=== PATIENT | male | born 1950 | race Caucasian/White ===

== ENCOUNTER 2023-12-15 08:30 | Emergency (ER) | payer MEDICARE, OTHER, SELFPAY ==
[2023-12-15 08:48] VITALS: BP 171/99
[2023-12-15] MEDS: PERCOCET 5/325 2 TABLET PO (11:19)
--- NOTE | 2023-12-15 11:25 | ED.GENMED ---
History of Present Illness
General
Chief Complaint: Musculo-Skeletal Complaint
Source: patient
Exam Limitations: none
Time Seen by Provider: 12/15/23 09:00
Nursing documentation reviewed up to this point in time: agreed with
Travel History
Have you had any contact with someone who has COVID-19?: No
Do you have any symptoms of coronavirus? Fever > 100 degrees, chills, cough, shortness of breath, sore throat, loss of taste or smell, muscle aches, or headache?: No
History of Present Illness
History of Present Illness:
73-year-old male with past ministry of CAD hypertension hyperlipidemia presenting to the emergency department today with concerns of left-sided knee discomfort. That started 3 days ago. He has noticed ongoing discomfort to the area and worsening
over the past few days. Denies numbness weakness has noticed a small mount of swelling no redness or warmth no fevers no systemic symptoms
Past History
Past History
ED Past Medical History: CAD, HTN and Hypercholesterolemia
ED Past Surgical History: Bowel resection, Cardiac (Double bypass) and Orthopedic (Right knee surgery)
Social History
Tobacco: Non-smoker
Alcohol: Other
Personal:
Living: with family
Review of Systems
Review of Systems
Allergies reviewed?: Yes
All Other Systems: ROS reviewed and negative except as documented in HPI and ROS
Phy Exam
Physical Exam
Physical Exam:
GENERAL: Alert , in no apparent distress
EYE: pupils equal and reactive
NECK: Supple, no significant adenopathy.
ENT: o/p clr, mmm.
CARDIAC: Regular rate and rhythm .
LUNGS: Clear breath sounds bilaterally, no acute respiratory distress, no wheezes/rales/rhonchi
ABDOMEN: Soft, without focal tenderness, no r/g, no cvat
NEUROLOGICAL: Alert and oriented, no focal neuro deficits
SKIN: Warm and dry, skin intact.
MUSCULOSKELETAL: No specific discomfort when palpating the knee no redness or warmth good range of motion increased discomfort only when ambulating weightbearing no edema, well perfused.
PSYCH: Normal and appropriate interaction.
Course
Orders/Labs/Results
Orders:
Orders
12/15/23 08:51
Knee, Left 4 or More Views [CR Knee - Left 4 Or More View*] Urgent
Comment:
Reason For Exam: pain
12/15/23 10:25
Venous Doppler Lwr Ext Left [US Periph Venous LOWER Ext LT] Urgent
Comment:
Reason For Exam: left leg pain
12/15/23 10:46
Oxycodone/Acetaminophen [Percocet 5/325] 2 tablet PO NOW STA
Vital Signs
Initial and Last Documented VS:
Initial Vital Signs
Temp Pulse Resp BP Pulse Ox
97.9 F 67 16 171/99 98
12/15/23 08:48 12/15/23 08:48 12/15/23 08:48 12/15/23 08:48 12/15/23 08:48
Last Documented Vital Signs
Temp Pulse Resp BP Pulse Ox
97.9 F 67 16 171/99 98
12/15/23 08:48 12/15/23 08:48 12/15/23 08:48 12/15/23 08:48 12/15/23 08:48
MDM/Problems Addressed
MDM/Problems Addressed:
73-year-old male presenting to the emergency department today with concerns of ongoing left-sided knee discomfort mainly with weightbearing and ambulation. No redness or warmness. Very unlikely be DVT considering symptoms seem to be after a
specific injury and is only present with ambulation and weightbearing. X-ray without signs of acute fracture internal derangement advised for close outpatient follow-up with orthopedics. Return precautions given.
*Critical Care Note
Total Time (30-74mins, 75-104mins- exclusive of procedures): Not Applicable
ED Attending Note
-
Portions of this chart may have been created with voice recognition software.� Occasional wrong word or��sound alike� substitutions may have occurred due to the inherent limitations of voice recognition software.
Discharge Plan
Departure
Patient Disposition: Home (Routine Discharge)
Date of Disposition: 12/15/23
Time of Disposition: 11:38
Patient with high blood pressure during this ER visit?: No
Condition: Good
Covid-19: Not Applicable
Discharge Problem:
Derangement of knee, left
Instructions: Knee Sprain (DC)
Prescriptions:
New
oxycodone-acetaminophen [Percocet] 5-325 mg tablet
1 tab PO Q6H PRN (Reason: Pain) Qty: 7 0RF
Referrals:
Caridad Felix MD [Family Provider] -
Johnny Abdi MD [Active] - Follow up in 10 days
Activity Restrictions/Additional Instructions:
You came to the emergency department today with concerns of knee discomfort. You have an x-ray without signs of fracture you likely have internal knee injury. Please follow closely with orthopedics. Return to the emergency department for any
worsening, new or concerning symptoms.
Interventions
Interventions:
*Risk Screen - Suicide Last Done: 12/15/23 08:48
*General Assessment Last Done: 12/15/23 08:48
*Neglect/Abuse Screening Last Done: 12/15/23 08:48
ED-Musculoskeletal Assessment Last Done: 12/15/23 09:45
== END 2023-12-15 11:50 | disposition home or self-care (01) ==
LOC: EMR 08:30
PROVIDERS: EMERGENCY PHYSICIAN Emergency Medicine; FAMILY PHYSICIAN Internal Medicine
DX: M23.92 Unspecified internal derangement of left knee (principal); I25.10 Atherosclerotic heart disease of native coronary artery without angina pectoris; I10 Essential (primary) hypertension; E78.00 Pure hypercholesterolemia, unspecified
CPT/HCPCS: 99283; 73564

== ENCOUNTER → 2023-12-17 07:22 | Outpatient (REF) | payer MEDICARE, OTHER, SELFPAY | LOC: MRI 07:22 | PROVIDERS: ATTENDING PHYSICIAN Orthopaedic Surgery; PRIMARYCARE PHYSICIAN Internal Medicine | DX: M25.562 Pain in left knee (principal) | CPT/HCPCS: 73721 ==

== ENCOUNTER → 2024-04-01 14:59 | Outpatient (REF) | payer MEDICARE, OTHER, SELFPAY | LOC: HWRCS 14:59 | PROVIDERS: ATTENDING PHYSICIAN Internal Medicine Cardiovascular Disease; FAMILY PHYSICIAN Internal Medicine | DX: I77.810 Thoracic aortic ectasia (principal) | CPT/HCPCS: 93306 ==

== ENCOUNTER 2025-10-24 06:27 | Day surgery (SDC) | payer MEDICARE, OTHER, SELFPAY ==
[2025-10-13 13:12] VITALS: BMI 33.2
[2025-10-24] VITALS (7 sets, daily range): BP systolic 134–158; BP diastolic 71–87; BMI 33.2
[2025-10-24] MEDS: TYLENOL 1000 MG PO (09:52)
[2025-10-24] MEDS: NORMOSOL-R/PLASMALYTE-A 1000 IV (09:52)
--- NOTE | 2025-10-24 12:57 | HP.FOC2 ---
Focused History & Physical
Chief Complaint
HPI:
Chief Complaint: Incisional hernia
HPI / Indication for Planned Procedure: Patient is a 75-year-old male recently seen in outpatient surgical evaluation secondary to a longstanding history of an incisional hernia along the right side of his transverse surgical scar from colon
resection. The hernia has been present for many years. It is generally stable in size. Physical examination confirmed the presence of a incisional hernia off to the right of the midline just above the umbilical region. Patient presents today for
scheduled operative correction.
Relevant Past Medical History: Other (History of CAD status post CABG, history of colon cancer, hyperlipidemia, hypertension)
Relevant Social History: Negative
Relevant Family History: Negative
Relevant Past Surgical History: Positive for (Left hemicolectomy, CABG, knee scope)
Review of Systems
Review of Pertinent Systems: All Systems Negative
Medication
See Medication form for detailed medications: Yes
Medication List (including Herbals & OTC):
ascorbic acid (vitamin C) 500 mg tablet (Vitamin C) 500 mg PO DAILY 10/21/25
aspirin 81 mg tablet,delayed release 81 mg PO DAILY 10/21/25
cholecalciferol (vitamin D3) 125 mcg (5,000 unit) tablet (Vitamin D3) 125 mcg PO DAILY 10/21/25
vitamin E (dl, acetate) 90 mg (200 unit) capsule 90 mg PO DAILY 10/21/25
Medications Reviewed: Yes
Allergies and Reactions
Patient has Allergies: No
Noted Allergies and Reactions:
Allergy/AdvReac Type Severity Reaction Status Date / Time
No Known Allergies Allergy Verified 10/24/25 09:32
Pertinent Physical Exam
All Other Systems: Negative
Head/Neck: Normal
Lungs: Normal
Heart: Normal
Abdomen: Other (Right sided periumbilical incisional hernia)
Extremities: Normal
Neurological: Normal
Diagnosis / Assessment
75-year-old male presenting for scheduled operative correction symptomatic incisional hernia
Plan / Procedure
Open incisional hernia repair with mesh
Anesthesia/Sedation to be done by Anesthesia Provider: Yes
--- NOTE | 2025-10-24 12:59 | W.SUR.PREOP ---
Pre-Operative Surgical Note
-
I have examined this patient prior to the performance of the scheduled procedure.
The patient's condition is unchanged from the time of the current History and
Physical and the patient is able to undergo the scheduled procedure.
--- NOTE | 2025-10-24 14:31 | W.IMMPOSTOP ---
Addendum entered and electronically signed by Jett Schmitt MD 10/24/25 14:45:
#[id number]
Original Note:
Surgical Immed Post Op Note
-
Primary Surgeon: Jett Schmitt MD
Assisting Surgeon: Rosey Burk PA-c
Pre-op Diagnosis: Incisional hernia
Post-op Diagnosis: Incisional hernia, 2 cm
Procedure Performed: Open incisional hernia repair with mesh; Ventralex ST 6.4 cm round
Anesthesia Type: General LMA + 1% lidocaine/0.25% Marcaine with epinephrine
Specimen / Cultures: None
Estimated Blood Loss: 6 mL
Complications: None immediate
Operative Findings: Incisional hernia along the right lateral aspect of previous surgical scar. Herniated omentum reduced and released from adhesions to hernia sac. Underlay mesh repair/partially preperitoneal. Mesh secured with 2 transfascial
buried horizontal mattress 0 Maxon stitches. Fascial defect closed with 0 PDS STRATAFIX symmetric.
The assistance of Rosey Burk PA-C was required due to the complexity of the procedure. During the procedure Rosey Burk PA-C assisted with tissue retraction for adequate exposure to complete herniorrhaphy as well as closure of the incision site.
== END 2025-10-24 15:54 | disposition home or self-care (01) ==
LOC: SDS 06:27
PROVIDERS: ATTENDING PHYSICIAN Surgery
DX: K43.2 Incisional hernia without obstruction or gangrene (principal)
CPT/HCPCS: 49591; C1781